=== PATIENT | male | born 1995 | race African-American/Black ===

== ENCOUNTER 2020-07-24 06:34 | Emergency (ER) | payer SELFPAY ==
[2020-07-24 07:27] VITALS: BP 152/99
[2020-07-24 08:20] LABS: Hematocrit 50.7 % (35.5-45.6); Hemoglobin 17.5 gm/dl (11.8-15.2); Mean Corpuscular HGB Conc 35 % (32-34); Mean Corpuscular Volume 93 fl (84-94); Platelet Count 239 K/mm3 (140-440); Red Blood Count 5.49 M/mm3 (3.65-5.03); Red Cell Distribution Width 13.3 % (13.2-15.2)
[2020-07-24 08:38] LABS: Blood Urea Nitrogen 7 mg/dL (9-20); Calcium 9.6 mg/dL (8.4-10.2); Hemolysis Index 41
[2020-07-24 08:40] LABS: BUN/Creatinine Ratio 12
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
[2020-07-24 12:34] LABS: Band Neutrophils # (Manual) 0.5 K/mm3; Total Cells Counted 100
[2020-07-24 12:35] LABS: Platelet Estimate Consistent w Auto; RBC Morphology Normal
== END 2020-07-24 11:45 | disposition home or self-care (01) ==
LOC: ED 06:34
DX: S00.83XA Contusion of other part of head, initial encounter (principal); S09.90XA Unspecified injury of head, initial encounter; F10.129 Alcohol abuse with intoxication, unspecified; D72.829 Elevated white blood cell count, unspecified; R04.0 Epistaxis; Z79.1 Long term (current) use of non-steroidal anti-inflammatories (NSAID); X50.9XXA Other and unspecified overexertion or strenuous movements or postures, initial encounter; Y93.89 Activity, other specified; Y92.89 Other specified places as the place of occurrence of the external cause; Y99.8 Other external cause status
CPT/HCPCS: 36415; 70450; 70486; 80048; 80320; 85007; 85025; G0480